=== PATIENT | male | born 1960 | race African-American/Black ===

== ENCOUNTER 2019-08-01 09:15 | Emergency (ER) | payer OTHER ==
--- NOTE | 2019-08-01 09:47 | ER Document Report ---
HPI - HPI Patient complains to provider of: Possible Covid 19exposure Onset: Other Quality of pain: No pain Context: This 58-year-old male with history of migraines and orthopedic surgeries presents to the emergency department for possible Covid 19 exposure. Reports his mother was flagged and tested yesterday. Results are still pending. He reports last time he saw his mother was July 30, 2019. He denies symptoms such as fever vomiting diarrhea body aches cough. Reports he is eating drinking voiding as normal. Patient works in [employer] at [employer]. The patient was evaluated during the global Covid 19 pandemic and this diagnosis was suspected/considered upon their initial presentation. Their evaluation, treatment and testing was consistent with current guidelines for patients who present with complaints or symptoms that may be related to Covid 19. Associated Symptoms: None Past Medical History - General Information source: Patient - Social History Smoking Status: Current Every Day Smoker Cigarette use (# per day): Yes Occupation: [employer] Lives with: Family Family History: None - Medical History Medical History: Other Neurological Medical History: Reports: Hx Migraine Past Surgical History: Reports: Hx Orthopedic Surgery Vertical Provider Document - CONSTITUTIONAL Agree With Documented VS: Yes Exam Limitations: No Limitations General Appearance: WD/WN, No Apparent Distress Notes: Full physical exam could not be performed due to Covidien 19 isolation protocols. Constitutional: nontoxic appearance, no acute distress Eyes: Nonicteric, extraocular movements intact, sclera clear Respiratory: Nonlabored breathing, no use of accessory muscles, no tachypnea Cardiovascular: No JVD Gastrointestinal: Abdominal not distended Musculoskeletal: Moves all extremities well Skin: Normal color Neuro: Awake alert oriented normal speech Psych: Normal mood and affect - HEENT HEENT: Atraumatic, Normocephalic. negative: Conjuctival Injection - NECK Neck: Supple - RESPIRATORY Respiratory: Breath Sounds Normal, No Respiratory Distress - CARDIOVASCULAR Cardiovascular: Regular Rate, Regular Rhythm - GI/ABDOMEN Gastrointestinal: Abdomen Soft, Abdomen Non-Tender - DERM Integumentary: Warm, Dry Course - Re-evaluation Re-evalutation: 08/01/19 10:10 Patient presents with possible Covid 19 exposure. Patient does not have emergency worriesome symptoms such as difficulty breathing, shortness of breath, chest pain, pressure, confusion or cyanosis. Patient appears suitable for discharge as they are not of an advanced age, do not have any chronic medical conditions such as diabetes, CAD, immune deficiency, chronic lung disease or chronic kidney disease. Patient's vital signs are stable and patient is nontoxic in appearance. Good return precautions have been discussed with patient, patient verbalized understanding and is agreeable with discharge plan of care at this time. Patient was instructed on self quarantine for 14 days. 08/01/19 10:40 Strep and influenza testing negative. Covid19 test pending. Patient notified by RN of negative strep and influenza test. - Vital Signs Vital signs: 08/01/19 10:07 Heart rate 76, BP 135/67, O2 sat 98%, temp 96.4 Discharge - Discharge Clinical Impression: Possible COVID 19 exposure Condition: Stable Disposition: HOME, SELF-CARE Additional Instructions: *You have been evaluated for possible Covid-19 exposure *You have been tested for strep and influenza also. Should these test return positive you will be contacted and a prescription will be called to your local pharmacy *Monitor your temperature, take Tylenol or Motrin as indicated. *Practice social distancing and good handwashing *You are also required to be quarantined for the next 14 days. You will be contacted by the health department with the results of your Covid test Return to the emergency department immediately for any difficulty breathing concerns needs.
[2019-08-01 10:35] LABS: A TYPE INFLUENZA AG NEGATIVE (NEGATIVE); B INFLUENZA AG NEGATIVE (NEGATIVE)
== END 2019-08-01 10:59 | disposition home or self-care (01) ==
LOC: EDRDC 09:15
DX: Z20.828 Contact with and (suspected) exposure to other viral communicable diseases (principal)
CPT/HCPCS: 87070; 87635; 87804; 87880; 99201